=== PATIENT | male | born 1960 | race Two or more races ===

== ENCOUNTER 2021-03-17 17:10 | Emergency (ER) | payer MEDICAID ==
[~2021-03-17] VITALS: Ht 167.6 cm; Wt 100.2 kg
[2021-03-17] MEDS ORDERED: diphenhdrAMINE HCL 50 MG/1 ML VL IV ONE (18:00)
[2021-03-17] MEDS ORDERED: methylPREDNISolone SOD SUCC 125 MG/2 ML VL IV ONE (18:00)
[2021-03-17 18:37] LABS: Basophils # (auto) 0.1 10 ^3/uL (0-0.2); Basophils % (auto) 1.1 % (0.0-2.0); Eosinophils # (auto) 0.2 10 ^3/uL (0-0.8); Eosinophils % (auto) 2.1 % (0.0-7.0); Hematocrit 47.4 % (41.0-53.0); Hemoglobin 15.5 g/dL (13.5-17.5); Lymphocytes % (auto) 23.4 % (10.0-50.0); Mean Corpuscular Hemoglobin 30.1 pg (28.0-32.0); Mean Corpuscular Hgb Conc. 32.7 g/dL (32.0-36.0); Mean Corpuscular Volume 92.1 fL (80.0-100.0); Monocytes # (auto) 0.6 10 ^3/uL (0-1.3); Monocytes % (auto) 7.3 % (0.0-12.0); Neutrophils # (auto) 5.6 10 ^3/uL (1.6-8.6); Neutrophils % (auto) 66.1 % (37.0-80.0); Nucleated Red Blood Cells % 0.2 %; Red Blood Cells 5.15 10^6/uL (4.5-5.90); Red Cell Distribution Width 14.8 % (11.8-14.3); White Blood Cell 8.5 10^3/uL (4.4-10.8)
[2021-03-17 19:06] LABS: Albumin 3.1 g/dL (3.4-5.0); BUN/Creatinine Ratio 13.2; Calcium 8.5 mg/dL (8.5-10.1); Potassium 3.5 mmol/L (3.5-5.1)
[2021-03-17 19:08] LABS: Bilirubin, Total 0.5 mg/dL (0.2-1.0); Total Protein 7.4 g/dL (6.4-8.2)
[2021-03-17 20:10] VITALS: BP 152/89
== END 2021-03-17 20:27 | disposition home or self-care (01) ==
LOC: ER 17:10
DX: R22.0 Localized swelling, mass and lump, head (principal); T41.45XA Adverse effect of unspecified anesthetic, initial encounter; I10 Essential (primary) hypertension; E78.00 Pure hypercholesterolemia, unspecified; F17.210 Nicotine dependence, cigarettes, uncomplicated; Y92.89 Other specified places as the place of occurrence of the external cause
CPT/HCPCS: 36415; 80053; 85025; 96374; 96375; 99284; J1200; J2930

== ENCOUNTER → 2023-08-01 | Outpatient (CLI) | payer OTHER, MEDICAID | END | disposition home or self-care (01) | LOC: XYW 10:15 | DX: M13.871 Other specified arthritis, right ankle and foot (principal) | CPT/HCPCS: 93925 ==

== ENCOUNTER 2023-10-02 20:08 | Inpatient (IN) | payer OTHER, MEDICAID ==
[~2023-10-02] VITALS: Ht 177.8 cm; Wt 82.0 kg
[2023-10-02 20:31] LABS: Basophils # (auto) 0.1 10 ^3/uL (0-0.2); Basophils % (auto) 0.7 % (0.0-2.0); Eosinophils # (auto) 0.3 10 ^3/uL (0-0.8); Eosinophils % (auto) 2.7 % (0.0-7.0); Hemoglobin 14.4 g/dL (13.5-17.5); Lymphocytes # (auto) 4.1 10 ^3/uL (0.4-5.4); Lymphocytes % (auto) 36.8 % (10.0-50.0); Mean Corpuscular Hemoglobin 29.3 pg (28.0-32.0); Mean Corpuscular Hgb Conc. 32.8 g/dL (32.0-36.0); Mean Corpuscular Volume 89.3 fL (80.0-100.0); Monocytes # (auto) 0.9 10 ^3/uL (0-1.3); Monocytes % (auto) 8.1 % (0.0-12.0); Neutrophils # (auto) 5.8 10 ^3/uL (1.6-8.6); Neutrophils % (auto) 51.7 % (37.0-80.0); Red Blood Cells 4.93 10^6/uL (4.5-5.90); Red Cell Distribution Width 13.7 % (11.8-14.3); White Blood Cell 11.2 10^3/uL (4.4-10.8)
[2023-10-02 20:50] LABS: Alanine Aminotransferase 22 U/L (7-40); Albumin 3.8 g/dL (3.2-4.8); Alkaline Phosphatase 77 U/L (46-116); Anion Gap 6 (5-15); Aspartate Aminotransferase 18 U/L (13-40); BUN/Creatinine Ratio 15.2 (10.0-20.0); Blood Urea Nitrogen 32 mg/dL (9-23); Calcium 9.9 mg/dL (8.7-10.4); Carbon Dioxide 28 mmol/L (20-30); Chloride 107 mmol/L (98-107); Glucose 92 mg/dL (74-106); Potassium 3.6 mmol/L (3.5-5.1); Sodium 141 mmol/L (136-145)
[2023-10-02 20:51] LABS: Bilirubin, Total 0.4 mg/dL (0.2-1.0); Total Protein 6.8 g/dL (5.7-8.2)
[2023-10-02 20:55] LABS: Lactic Acid w/Reflex 2.4 mmol/L (0.4-2.0)
[2023-10-02] MEDS: SODIUM CHLORIDE 0.9% 2,000 ML IV ONE (21:15)
[2023-10-02] MEDS: VANCOMYCIN 1GM/200ML 200 ML IV ONE (21:17)
[2023-10-02 22:43] LABS: Urine Bacteria None Seen /hpf (None Seen)
[2023-10-02 22:48] LABS: Urine Blood Negative /uL (Negative); Urine Clarity Clear (Clear); Urine Color Yellow (Yellow); Urine Hyaline Cast MOD /lpf (0 - 2); Urine Mucus FEW (None Seen); Urine Protein, UAD TRACE (Negative); Urine Specific Gravity 1.021 (1.001-1.035); Urine Urobilinogen 2 mg/dL (Negative); Urine WBC 2 /hpf (0 - 3)
[2023-10-02 22:50] VITALS: PULSE 63; RESP 10; O2SAT 96
[2023-10-02 23:02] LABS: Amphetamine Screen, Urine Neg (NEGATIVE); Barbiturate Scree,Urine Neg (NEGATIVE); Benzodiazephine Screen, Urine Neg (NEGATIVE); Cannabinoid Screen, Urine Pos (NEGATIVE); Cocaine Screen, Urine Neg (NEGATIVE); Opiate Scree,Urine Neg (NEGATIVE); Phencyclidine Screen, Urine Neg (NEGATIVE)
[2023-10-02] MEDS ORDERED: NITROGLYCERIN 0.4 MG SL TAB SL PRN (23:45)
[2023-10-02] MEDS: SODIUM CHLORIDE 0.9% 1,000 ML IV SCH (23:45)
[2023-10-02] MEDS ORDERED: MORPHINE SULFATE INJ 2 MG/ml SYRG IV PRN (23:45)
[2023-10-02] MEDS ORDERED: ACETAMINOPHEN 325 MG TAB PO PRN (23:45)
[2023-10-03 05:12] LABS: Basophils # (auto) 0 10 ^3/uL (0-0.2); Basophils % (auto) 0.5 % (0.0-2.0); Eosinophils # (auto) 0.3 10 ^3/uL (0-0.8); Eosinophils % (auto) 3.3 % (0.0-7.0); Hematocrit 40.8 % (41.0-53.0); Hemoglobin 13.5 g/dL (13.5-17.5); Lymphocytes # (auto) 2.7 10 ^3/uL (0.4-5.4); Lymphocytes % (auto) 26.3 % (10.0-50.0); Mean Corpuscular Hemoglobin 29.6 pg (28.0-32.0); Mean Corpuscular Volume 89.8 fL (80.0-100.0); Monocytes # (auto) 0.7 10 ^3/uL (0-1.3); Monocytes % (auto) 6.9 % (0.0-12.0); Neutrophils # (auto) 6.4 10 ^3/uL (1.6-8.6); Nucleated Red Blood Cells % 0.1 %; Red Blood Cells 4.55 10^6/uL (4.5-5.90); Red Cell Distribution Width 13.5 % (11.8-14.3); White Blood Cell 10.2 10^3/uL (4.4-10.8)
[2023-10-03 05:28] LABS: Alanine Aminotransferase 17 U/L (7-40); Albumin 3.3 g/dL (3.2-4.8); Alkaline Phosphatase 64 U/L (46-116); Anion Gap 3 (5-15); Aspartate Aminotransferase 12 U/L (13-40); BUN/Creatinine Ratio 16.7 (10.0-20.0); Blood Urea Nitrogen 21 mg/dL (9-23); Calcium 8.9 mg/dL (8.7-10.4); Carbon Dioxide 27 mmol/L (20-30); Chloride 111 mmol/L (98-107); Glucose 99 mg/dL (74-106); Potassium 3.8 mmol/L (3.5-5.1); Sodium 141 mmol/L (136-145)
[2023-10-03 05:29] LABS: Bilirubin, Total 0.9 mg/dL (0.2-1.0); Total Protein 6.1 g/dL (5.7-8.2)
[2023-10-03 08:07] VITALS: PULSE 68; RESP 12; O2SAT 97
[2023-10-03 10:14] LABS: Triglycerides 72 mg/dL (< 150)
[2023-10-03 10:15] LABS: LDL Cholesterol 56 mg/dL (< 100)
[2023-10-03 10:16] LABS: Cholesterol 89 mg/dL (< 200); HDL Cholesterol 25 mg/dL (40-59)
[2023-10-03] MEDS: cefTRIAXone 1GM/50ML D5W 50 ML IV SCH (10:35)
[2023-10-03] MEDS: ERGOCALCIFEROL 50,000 UNIT(1.25MG) CAP PO SCH (11:40)
[2023-10-03] MEDS: AZITHROMYCIN 500MG/ 250ML 250 ML IV SCH (11:44)
[2023-10-03 15:57] VITALS: BP 104/68; PULSE 68; RESP 16; TEMP 98.2; O2SAT 100
[2023-10-03 16:19] VITALS: BP 104/68; PULSE 68; RESP 16; TEMP 98.2; O2SAT 99
[2023-10-03] MEDS ORDERED: CHLO50TA PO (16:33)
[2023-10-03] MEDS ORDERED: ADAL40IN2 SC (16:33)
[2023-10-03] MEDS ORDERED: GABA-1250 PO (16:33)
[2023-10-03] MEDS ORDERED: LISI20TA56 PO (16:33)
[2023-10-03] MEDS ORDERED: MELO15TA29 PO (16:33)
[2023-10-03] MEDS ORDERED: HYDR50TA69 PO (16:33)
[2023-10-03 20:00] VITALS: PULSE 77; PULSE 82; RESP 14; O2SAT 98
[2023-10-03 21:00] VITALS: BP 118/78; PULSE 77; RESP 14; TEMP 97.9; O2SAT 95
[2023-10-03] MEDS: ONDANSETRON HCL 4 MG/2 ML VIAL IV PRN (22:22)
[2023-10-04 01:00] VITALS: BP 99/59; PULSE 92; RESP 16; TEMP 98; O2SAT 97
[2023-10-04 05:00] VITALS: BP 113/59; PULSE 86; RESP 14; TEMP 97.9; O2SAT 96
[2023-10-04 06:44] LABS: Basophils # (auto) 0 10 ^3/uL (0-0.2); Basophils % (auto) 0.6 % (0.0-2.0); Eosinophils # (auto) 0.3 10 ^3/uL (0-0.8); Eosinophils % (auto) 4.1 % (0.0-7.0); Hematocrit 44.8 % (41.0-53.0); Hemoglobin 14.6 g/dL (13.5-17.5); Lymphocytes # (auto) 1.9 10 ^3/uL (0.4-5.4); Mean Corpuscular Hemoglobin 29.5 pg (28.0-32.0); Mean Corpuscular Hgb Conc. 32.6 g/dL (32.0-36.0); Mean Corpuscular Volume 90.7 fL (80.0-100.0); Monocytes # (auto) 0.5 10 ^3/uL (0-1.3); Monocytes % (auto) 6.6 % (0.0-12.0); Neutrophils # (auto) 4.6 10 ^3/uL (1.6-8.6); Neutrophils % (auto) 62.7 % (37.0-80.0); Nucleated Red Blood Cells % 0.1 %; Red Blood Cells 4.94 10^6/uL (4.5-5.90); Red Cell Distribution Width 13.6 % (11.8-14.3); White Blood Cell 7.4 10^3/uL (4.4-10.8)
[2023-10-04 06:50] LABS: Alanine Aminotransferase 15 U/L (7-40); Alkaline Phosphatase 71 U/L (46-116); Anion Gap 2 (5-15); Blood Urea Nitrogen 11 mg/dL (9-23); Calcium 8.8 mg/dL (8.5-10.1); Carbon Dioxide 27 mmol/L (20-30); Chloride 111 mmol/L (98-107); Glucose 85 mg/dL (74-106); Potassium 3.8 mmol/L (3.5-5.1); Sodium 140 mmol/L (136-145)
[2023-10-04 06:51] LABS: Albumin 3.5 g/dL (3.2-4.8); Aspartate Aminotransferase 16 U/L (13-40)
[2023-10-04 06:52] LABS: Bilirubin, Total 0.9 mg/dL (0.2-1.0); Total Protein 6.3 g/dL (5.7-8.2)
[2023-10-04 08:00] VITALS: PULSE 78
[2023-10-04 09:00] VITALS: BP 114/71; PULSE 69; RESP 18; TEMP 98.8; O2SAT 98
[2023-10-04] MEDS: CYANOCOBALAMIN 500 MCG TAB PO SCH (10:00)
[2023-10-04 13:00] VITALS: BP 109/76; PULSE 74; RESP 18; TEMP 98.5; O2SAT 98
[2023-10-04] MEDS ORDERED: ERGO1CAP23 PO (14:12)
[2023-10-04] MEDS ORDERED: CYAN500T3 PO (14:12)
[2023-10-04 16:35] VITALS: BP 116/70; PULSE 73; RESP 18; TEMP 98.3; O2SAT 96
[2023-10-05] MEDS ORDERED: InsuLIN REG 1unit/0.01ml Soln (100units/ml) ONE (11:52)
[2023-10-05] MEDS ORDERED: KETOROLAC TROMETH 30 MG/ML 1ML VIAL ONE (11:52)
== END 2023-10-04 17:47 | disposition home or self-care (01) | DRG 871 ==
LOC: ER 20:08 → TELE-WESTW 23:45 → TELE 23:45 → TELE-WESTW 10-03 15:59
PROVIDERS: ADMIT Student in an Organized Health Care Education/Training Program; ATTEND Student in an Organized Health Care Education/Training Program
DX: A41.59 Other Gram-negative sepsis (principal); G93.41 Metabolic encephalopathy; J15.69 Pneumonia due to other Gram-negative bacteria; N17.0 Acute kidney failure with tubular necrosis; I10 Essential (primary) hypertension; F17.210 Nicotine dependence, cigarettes, uncomplicated; K57.30 Diverticulosis of large intestine without perforation or abscess without bleeding; M10.9 Gout, unspecified; M06.9 Rheumatoid arthritis, unspecified; K20.90 Esophagitis, unspecified without bleeding; R56.9 Unspecified convulsions; Z79.60 Long term (current) use of unspecified immunomodulators and immunosuppressants; Z80.9 Family history of malignant neoplasm, unspecified; Z82.49 Family history of ischemic heart disease and other diseases of the circulatory system; Z83.3 Family history of diabetes mellitus; Z79.4 Long term (current) use of insulin
CPT/HCPCS: 36415; 70450; 70551; 71045; 74176; 80053; 80061; 80307; 81001; 82140; 82306; 82607; 83036; 83605; 83880; 84443; 84484; 85025; 87040; 93005; 93306; 93886; 95819; 96365; G0378; J2405

== ENCOUNTER 2023-11-08 06:00 | Day surgery (SDC) | payer OTHER, MEDICAID ==
[2023-11-06 09:25] LABS: Basophils # (auto) 0 10 ^3/uL (0-0.2); Basophils % (auto) 0.7 % (0.0-2.0); Eosinophils # (auto) 0.3 10 ^3/uL (0-0.8); Eosinophils % (auto) 4.5 % (0.0-7.0); Hematocrit 43.6 % (41.0-53.0); Hemoglobin 14.3 g/dL (13.5-17.5); Lymphocytes # (auto) 2.2 10 ^3/uL (0.4-5.4); Lymphocytes % (auto) 33.8 % (10.0-50.0); Mean Corpuscular Hemoglobin 29.6 pg (28.0-32.0); Mean Corpuscular Hgb Conc. 32.8 g/dL (32.0-36.0); Mean Corpuscular Volume 90.3 fL (80.0-100.0); Monocytes # (auto) 0.5 10 ^3/uL (0-1.3); Monocytes % (auto) 7.8 % (0.0-12.0); Neutrophils # (auto) 3.5 10 ^3/uL (1.6-8.6); Neutrophils % (auto) 53.2 % (37.0-80.0); Red Blood Cells 4.83 10^6/uL (4.5-5.90); Red Cell Distribution Width 13.7 % (11.8-14.3); White Blood Cell 6.6 10^3/uL (4.4-10.8)
[2023-11-06 09:43] LABS: INR 1.08 (0.9-1.15); Partial Thromboplastin Time 26.5 SEC (24.5-34.5); Prothrombin Time 11.4 sec (9.3-11.8)
[2023-11-06 10:15] LABS: Alanine Aminotransferase 34 U/L (7-40); Alkaline Phosphatase 76 U/L (46-116); Anion Gap 5 (5-15); Aspartate Aminotransferase 22 U/L (13-40); BUN/Creatinine Ratio 20.8 (10.0-20.0); Blood Urea Nitrogen 20 mg/dL (9-23); Carbon Dioxide 28 mmol/L (20-30); Chloride 106 mmol/L (98-107); Glucose 75 mg/dL (74-106); Sodium 139 mmol/L (136-145)
[2023-11-06 10:16] LABS: Albumin 3.8 g/dL (3.2-4.8); Bilirubin, Total 0.4 mg/dL (0.2-1.0); Total Protein 6.7 g/dL (5.7-8.2)
[2023-11-07 12:06] LABS: Urine Bacteria None Seen /hpf (None Seen)
[2023-11-07 12:09] LABS: Urine Blood Negative /uL (Negative); Urine Clarity Clear (Clear); Urine Color Light-Yellow (Yellow); Urine Protein, UAD Negative (Negative); Urine Urobilinogen Normal (Negative); Urine WBC 1 /hpf (0 - 3); Urine pH 6.5 (5.0-9.0)
[~2023-11-08] VITALS: Ht 167.6 cm; Wt 78.9 kg
[~2023-11-08 06:00] MED LIST: ADAL40IN2 SC; BACL20TA PO; CHLO50TA PO; CYAN500T3 PO; ERGO1CAP23 PO; GABA-1250 PO; HYDR-4072 PO; HYDR50TA69 PO; LISI20TA56 PO; MELO15TA29 PO; OMEP-448 PO
[2023-11-08] MEDS ORDERED: ceFAZolin 2 GM/D5W50ml 50 ML IV ONE (06:31)
[2023-11-08 06:35] VITALS: TEMP 97.1
[2023-11-08] MEDS ORDERED: fentaNYL CITRATE 100 MCG/2 ML VL ONE (06:51)
[2023-11-08] MEDS: LIDOCAINE 1% HCL (LOCAL ANESTH.) INJ 20ML MDV ONE (08:00)
[2023-11-08] MEDS: BUPIVACAINE HCL 0.25% P/F 10 ML VIAL ONE (08:00)
[2023-11-08] MEDS ORDERED: ONDANSETRON HCL 4 MG/2 ML VIAL ONE (08:09)
[2023-11-08] MEDS ORDERED: DexAMETHasone SOD PHOS 10MG/1ML VIAL INJ ONE (08:09)
[2023-11-08 09:05] VITALS: PULSE 75; RESP 11; O2SAT 100
[2023-11-08] MEDS ORDERED: HYDR-4902 PO (09:05)
[2023-11-08] MEDS ORDERED: AUG875T PO (09:05)
[2023-11-08] MEDS ORDERED: MEPERIDINE HCL (25 MG/ML) 1ML VIAL IV PRN (09:15)
[2023-11-08] MEDS ORDERED: HYDROmorphone HCL 2 MG/ML VL/or syr IV PRN (09:15)
[2023-11-08] MEDS ORDERED: ONDANSETRON HCL 4 MG/2 ML VIAL IV ONE (09:15)
[2023-11-08 10:10] VITALS: BP 122/80; PULSE 66; RESP 11; O2SAT 100
== END 2023-11-08 10:25 | disposition home or self-care (01) ==
LOC: SUR 06:00
PROVIDERS: ATTEND Student in an Organized Health Care Education/Training Program
DX: M20.5X1 Other deformities of toe(s) (acquired), right foot (principal); M13.871 Other specified arthritis, right ankle and foot; M20.41 Other hammer toe(s) (acquired), right foot; I10 Essential (primary) hypertension; K21.9 Gastro-esophageal reflux disease without esophagitis; M06.9 Rheumatoid arthritis, unspecified; M10.9 Gout, unspecified; F17.210 Nicotine dependence, cigarettes, uncomplicated; Z79.01 Long term (current) use of anticoagulants; Z79.899 Other long term (current) drug therapy; Z98.890 Other specified postprocedural states
CPT/HCPCS: 28285; 28750; 36415; 73620; 73630; 80053; 81001; 85025; 85610; 85730; C1713; J0690; J1100; J2001; J2405; J3010; J3490; 76000

== ENCOUNTER 2024-07-29 08:59 | Day surgery (SDC) | payer OTHER, MEDICAID ==
[2024-07-27 14:28] LABS: Basophils # (auto) 0.2 10 ^3/uL (0-0.2); Basophils % (auto) 2.5 % (0.0-2.0); Eosinophils # (auto) 0.2 10 ^3/uL (0-0.8); Eosinophils % (auto) 3.3 % (0.0-7.0); Hematocrit 46.6 % (41.0-53.0); Hemoglobin 15.8 g/dL (13.5-17.5); Lymphocytes # (auto) 2.2 10 ^3/uL (0.4-5.4); Mean Corpuscular Hemoglobin 31.1 pg (28.0-32.0); Mean Corpuscular Volume 91.7 fL (80.0-100.0); Monocytes # (auto) 0.7 10 ^3/uL (0-1.3); Monocytes % (auto) 11.1 % (0.0-12.0); Neutrophils # (auto) 3.1 10 ^3/uL (1.6-8.6); Neutrophils % (auto) 49.1 % (37.0-80.0); Nucleated Red Blood Cells % 0.1 %; Platelet Count (auto) 265 10^3/uL (140-450); Red Blood Cells 5.08 10^6/uL (4.5-5.90); Red Cell Distribution Width 14.3 % (11.8-14.3); White Blood Cell 6.4 10^3/uL (4.4-10.8)
[2024-07-27 14:49] LABS: INR 1.03 (0.9-1.15); Partial Thromboplastin Time 28.3 SEC (24.5-34.5); Prothrombin Time 10.9 sec (9.3-11.8)
[2024-07-27 14:50] LABS: Alanine Aminotransferase 18 U/L (7-40); Albumin 4.6 g/dL (3.2-4.8); Alkaline Phosphatase 85 U/L (46-116); Anion Gap 6 (5-15); Aspartate Aminotransferase 16 U/L (13-40); BUN/Creatinine Ratio 14.8 (10.0-20.0); Bilirubin, Total 0.4 mg/dL (0.2-1.0); Blood Urea Nitrogen 17 mg/dL (9-23); Carbon Dioxide 28 mmol/L (20-31); Chloride 103 mmol/L (98-107); Glucose 86 mg/dL (74-106); Potassium 3.8 mmol/L (3.5-5.1); Sodium 137 mmol/L (136-145); Total Protein 7.7 g/dL (5.7-8.2)
[2024-07-27 14:51] LABS: Calcium 10.7 mg/dL (8.7-10.4)
[~2024-07-29] VITALS: Ht 167.6 cm; Wt 79.4 kg
[2024-07-29 08:46] LABS: Urine Bacteria None Seen /hpf (None Seen)
[2024-07-29 08:49] LABS: Urine Blood Negative /uL (Negative); Urine Budding Yeast OCCASIONAL /hpf (None Seen); Urine Clarity Clear (Clear); Urine Color Light-Yellow (Yellow); Urine Protein, UAD Negative (Negative); Urine Specific Gravity 1.021 (1.001-1.035); Urine Squamous Epithelial Cell None Seen /hpf (<5); Urine Urobilinogen 2 mg/dL (Negative); Urine WBC < 1 /HPF (0-3)
[~2024-07-29 08:59] MED LIST changes: -HYDR-4072 PO
[2024-07-29] MEDS ORDERED: ceFAZolin 2 GM/D5W100ml 100 ML IV ONE (09:22)
[2024-07-29] MEDS ORDERED: ONDANSETRON HCL 4 MG/2 ML VIAL ONE (09:31)
[2024-07-29] MEDS ORDERED: DexAMETHasone SOD PHOS 10MG/1ML VIAL INJ ONE (09:31)
[2024-07-29] MEDS ORDERED: PROPOFOL 10 MG/ML 20 ML IV ONE (09:31)
[2024-07-29] MEDS ORDERED: LIDOCAINE 1% INJ PF 5ML AMP ONE (09:31)
[2024-07-29] MEDS ORDERED: GLYCOPYRROLATE 0.2 MG/ML 1ML VIAL ONE (09:31)
[2024-07-29] MEDS ORDERED: KETOROLAC TROMETH 30 MG/ML 1ML VIAL ONE (09:31)
[2024-07-29] MEDS ORDERED: KETAMINE 50mg/ML 1ml syringe ONE (09:32)
[2024-07-29] MEDS ORDERED: BUPIVACAINE 0.5% P/F INJ 10 ML VIAL ONE (10:37)
[2024-07-29 11:22] VITALS: TEMP 97.8; O2SAT 100
--- NOTE | 2024-07-29 11:27 | DVHOP2 ---
Operative Report - 2 Report Details Date: 07/29/24 Preop Diagnosis: 1. Right foot 2nd hammertoe 2. Right foot 3rd hammertoe 3. Right foot pain Postop Diagnosis: Same as preop Surgeon: Linette Hunter MD Anesthesiologist: See anesthesia Anesthesia: Mac Implant: Arthrex flex wire x2 Consent: The patient was informed of the risks and benefits of the procedure. These include but are not limited to complications of anesthesia, postoperative infection, incomplete relief of symptoms, recurrence of symptoms, damage to blood vessels, nerves and tendons, deep venous thrombosis, pulmonary embolism and possible need for repeat surgery in the future. Complications: None Estimated Blood Loss: Minimal Fluids: See anesthesia Findings: Consistent with the diagnosis Indications for Surgery: Worsening contractures Name of Procedure Performed 1. Right second toe hammer toe repair (14962) 2. Right third toe hammer toe repair (66286) 3. Right second toe partial exostosis resection (64303) 4. Right 3rd toe partial exostosis resection (34677) Procedure Details Procedure Details: PRE-PROCEDURE INFORMATION: In the pre-op holding area, the extremity to be operated on was clearly marked and the patient verified correct laterality of the marking. The patient was transferred to the OR table and placed in a supine position. A timeout was performed in which identification of the correct patient, procedure, location, and materials was done. The right foot and leg were prepped and draped in normal sterile fashion. The foot and leg were exsanguinated and the thigh tourniquet was inflated to 250 mmHg. DESCRIPTION OF PROCEDURE: Attention was directed to right 2nd toe, a stab inc ision was made using and using a MIS bur an osteotomy was performed of the proximal phalanx. It was noted there was still contracture at the distal aspect of the toe. Using the MIS bur, an osteotomy was performed of the distal phalanx. It was noted there is a small exostosis on the medial aspect which was removed using the bur. A K-wire was then driven from the distal aspect to the proximal phalanx. It was noted there was good correction hammertoe deformity. Attention was directed to right 3rd toe, a stab incision was made using and using a MIS bur an osteotomy was performed of the proximal phalanx. It was noted there was still contracture at the distal aspect of the toe. Using the SC bur, an osteotomy was performed of the distal phalanx. It was noted there is a small exostosis on the medial aspect which was removed using the bur. A K-wire was then driven from the distal aspect to the proximal phalanx. It was noted there was good correction hammertoe deformity. All surgical wounds were irrigated copiously with saline and closed in layers with the aforementioned suture material. A dry sterile dressing was placed on the surgical extremity. The patient was placed in a postop shoe. POSTOPERATIVE INFORMATION: The patient tolerated the above noted procedure and anesthesia well and was transferred to the PACU with vital signs stable, and vascular status intact with capillary refill intact to all digits. Postoperative instructions reviewed in detail with the patient with written instructions provided. Patient will return to clinic in approximately 10-14 days for first postoperative visit. Patient has the number of the clinic and was instructed to call prior to that time should any problems, questions, or concerns arise. Condition Good Disposition Home LINETTE HUNTER DPM Jul 29, 2024 11:27
[2024-07-29 12:08] VITALS: BP 98/69; PULSE 53; RESP 19; O2SAT 100
== END 2024-07-29 12:24 | disposition home or self-care (01) ==
LOC: SUR 08:59
PROVIDERS: ATTEND Podiatrist
DX: M20.41 Other hammer toe(s) (acquired), right foot (principal); M06.9 Rheumatoid arthritis, unspecified; M10.9 Gout, unspecified; F17.210 Nicotine dependence, cigarettes, uncomplicated; G89.29 Other chronic pain; E66.3 Overweight; Z68.28 Body mass index [BMI] 28.0-28.9, adult; Z79.899 Other long term (current) drug therapy; Z98.890 Other specified postprocedural states; Z82.49 Family history of ischemic heart disease and other diseases of the circulatory system; Z80.9 Family history of malignant neoplasm, unspecified
CPT/HCPCS: 28285; 36415; 80053; 81001; 85025; 85610; 85730; C1769; J1100; J1885; J2405; J2704; J3490; L3260